=== PATIENT | male | born 1975 | race Caucasian/White ===

== ENCOUNTER 2018-04-26 01:01 | Observation (INO) | payer OTHER ==
[2018-04-26] MEDS ORDERED: NS 0.9% 1000 ML*IV.FLUID IV ONE (01:29)
[2018-04-26] MEDS ORDERED: Morphine VIAL* 4 MG/ML VIAL (1 ml vial) IV ONE (01:31)
[2018-04-26] MEDS ORDERED: Metoclopramide IV* 5 MG/ML 2 ML VIAL IV SLOW PU ONE (01:31)
[2018-04-26 02:00] LABS: Hematocrit 45 % (42-52); Hemoglobin 15.6 g/dl (14.0-18.0); Mean Corpuscular HGB Conc 34 g/dl (31-36); Mean Corpuscular Hemoglobin 31 pg (27-31); Mean Corpuscular Volume 91 fL (80-94); Platelet Count 166 10^3/ul (150-450); Red Cell Distribution Width 14 % (10.5-15)
[2018-04-26 02:10] LABS: EGFR Non-African American 9.1 (>60)
[2018-04-26] MEDS ORDERED: Vancomycin(*) 1,000 MG in NS 0.9% 250 ML* 250 ML IVPB ONE (02:19)
[2018-04-26] MEDS ORDERED: cefTRIAXone(*) 2 GM in NS 0.9% 100 ML* 100 ML IVPB ONE ×2 (02:20→02:28)
[2018-04-26 02:21] LABS: Monocytes % 5 % (0-7)
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
[2018-04-26] MEDS ORDERED: hydrALAZINE IV* 20 MG/ML VIAL IV PRN (05:36)
[2018-04-26] MEDS ORDERED: Acetaminophen TAB* 325 MG PO PRN (05:36)
[2018-04-26] MEDS ORDERED: CMCS Melatonin (NF) 3 MG TAB PO PRN (05:36)
[2018-04-26] MEDS ORDERED: Ondansetron ODT TAB* 4 MG PO PRN (05:36)
[2018-04-26] MEDS ORDERED: Albuterol 2.5 MG/3 ML NEB.SOL* (0.083%) INH PRN (05:36)
--- NOTE | 2018-04-26 05:56 | ED ---
Jared Elizabeth Rebecca, scribed for Alton Pemberton MD on 04/26/18 at 0547 . Progress - Progress Note Progress Note: Pt is being admitted by Dr. Travis. EKG done in the ED. EKG: Done at 0538 Rate: 79 bpm Rhythm: Sinus rhythm Ectopy: PVCs No ischemic changes Course/Dx - Course Course Of Treatment: Pt is being admitted by Dr. Travis. EKG: Done at 0538. Rate: 79 bpm. Rhythm: Sinus rhythm. Ectopy: PVCs. No ischemic changes - Diagnoses Provider Diagnoses: Acute renal insufficiency, Cervical disc herniation - Critical Care Time Critical Care Time: 30-74 min - 40 minutes Discharge - Sign-Out/Discharge Documenting (check all that apply): Discharge/Admit/Transfer - Admit - Discharge Plan Condition: Critical Disposition: ADMITTED TO [facility] Referrals: Zulay Gotti [Primary Care Provider] - The documentation as recorded by the Jared lawrence Rebecca accurately reflects the service I personally performed and the decisions made by Niecy saldaña Abdul, MD.
[2018-04-26] MEDS ORDERED: Baclofen TAB* 10 MG PO PRN (06:31)
[2018-04-26] MEDS ORDERED: LORazepam TAB(*) 0.5 MG PO PRN (06:32)
[2018-04-26 06:48] LABS: EGFR Non-African American 11.6 (>60)
[2018-04-26] MEDS: HYDROmorphone INJ* 2 MG/ML CARPUJECT SYRINGE IV PRN ×3 (06:52→21:28)
[2018-04-26 06:53] LABS: ABS Basophils 0.1 10^3/ul (0-0.2); ABS Eosinophils 0.1 10^3/ul (0-0.6); ABS Lymphocytes 3.6 10^3/ul (1.0-4.8); ABS Monocytes 0.8 10^3/ul (0-0.8); ABS Neutrophils 6.8 10^3/ul (1.5-7.7); ABS Nucleated RBC 0 10^3/ul; Eosinophil % 1.2 % (0-6); Hematocrit 41 % (42-52); Hemoglobin 14.2 g/dl (14.0-18.0); Lymphocyte % 31.7 % (25-47); Mean Corpuscular HGB Conc 35 g/dl (31-36); Mean Corpuscular Hemoglobin 32 pg (27-31); Mean Corpuscular Volume 91 fL (80-94); Mean Platelet Volume 9.2 um3 (7.4-10.4); Nucleated Red Blood Cells % 0; Platelet Count 114 10^3/ul (150-450); Red Blood Count 4.51 10^6/ul (4.0-5.4); Red Cell Distribution Width 14 % (10.5-15); White Blood Count 11.5 10^3/ul (3.5-10.8)
[2018-04-26] MEDS: Omeprazole CAP* 20 MG PO SCH (06:53)
[2018-04-26 07:59] LABS: Urine Appearance Cloudy; Urine Blood 3+ (Negative); Urine Color Yellow; Urine Ketones Negative (Negative); Urine Protein 1+(30 mg/dL) (Negative); Urine Specific Gravity 1.011 (1.010-1.030); Urine Urobilinogen Negative (Negative)
--- NOTE | 2018-04-26 08:02 | RAD ---
HISTORY: Shoulder and neck pain COMPARISONS: March 02, 2018 VIEWS: 1: frontal portable view of the chest at 1:54 AM FINDINGS: LINES AND TUBES: None. CARDIOMEDIASTINAL SILHOUETTE: The cardiomediastinal silhouette is normal for portable technique. PLEURA: The costophrenic angles are sharp. No pleural abnormalities are noted. LUNG PARENCHYMA: The lung volumes are low. The lungs are clear accounting for the phase of respiration. ABDOMEN: The upper abdomen is clear. There is no subphrenic gas. BONES AND SOFT TISSUES: No bone or soft tissue abnormalities are noted. IMPRESSION: LOW LUNG VOLUMES. NO ACTIVE CARDIOPULMONARY DISEASE.
--- NOTE | 2018-04-26 08:20 | RAD ---
HISTORY: Neck pain, bilateral arm pain, fever COMPARISONS: None TECHNIQUE: The following sequences were obtained of the cervical spine: Sagittal T1- and T2-weighted images, sagittal STIR images, axial T2 and gradient echo images. FINDINGS: BRAIN AND SPINAL CORD: The visualized spinal cord is normal in caliber, position, and signal intensity. The visualized portion of the brain is unremarkable. The cerebellar tonsils are normal in position. There are no epidural fluid collections. ALIGNMENT: There is straightening of the normal cervical lordosis. The alignment is otherwise normal. VERTEBRAL BODIES: There is mild anterolateral marginal osteophyte formation at C4-C5 and C6-C7. JOINTS: There is no subluxation or dislocation. MUSCULATURE: Unremarkable INTERVERTEBRAL DISCS: There is diffuse loss of intervertebral disc height and T2 signal throughout the spine. AXIAL IMAGES: C2-C3: There is no disc herniation, spinal stenosis, or neuroforaminal narrowing. C3-C4: There is no disc herniation, spinal stenosis, or neuroforaminal narrowing. C4-C5: There is a mild disc bulge. There is no significant neural foraminal narrowing. There is mild narrowing of the central canal. C5-C6: There is bilateral uncovertebral hypertrophy. There is moderate left and mild right neural foraminal narrowing. There is no significant central canal stenosis. C6-C7: There is a right lateral recess posterior osteophyte versus calcified disc protrusion measuring 0.3 cm in depth. There is bilateral uncovertebral hypertrophy. There is moderate bilateral neural foraminal narrowing. There is mild narrowing of the central canal. C7-T1: There is a right paracentral posterior osteophyte versus calcified disc protrusion measuring 0.3 cm in depth. There is bilateral facet hypertrophy. There is mild bilateral neural foraminal narrowing. There is no significant central canal stenosis. SOFT TISSUES: The visualized soft tissues of the neck are unremarkable. OTHER: None. IMPRESSION: 1. STRAIGHTENING OF THE CERVICAL LORDOSIS. 2. NO EPIDURAL FLUID COLLECTIONS. 3. DEGENERATIVE DISC DISEASE AND OSTEOARTHRITIS. 4. IS MILD NARROWING OF THE CENTRAL CANAL AT C4-C5 C7. 5. THERE ARE POSTERIOR OSTEOPHYTE VERSUS DISC PROTRUSIONS AT C6-C7 AND C7-T1 WITH A DISC BULGE AT C4-C5, DESCRIBED ABOVE. 6. THERE IS MULTILEVEL NEURAL FORAMINAL NARROWING DESCRIBED ABOVE
--- NOTE | 2018-04-26 08:23 | RAD ---
HISTORY: Neck pain, fever COMPARISONS: None TECHNIQUE: The following sequences were obtained of the thoracic spine: Sagittal T1 and T2-weighted images, sagittal STIR images, coronal T2-weighted images, and axial T2-weighted images. . FINDINGS: Localization is based on counting from C2 SPINAL CORD, CONUS, AND CAUDA EQUINA: The visualized spinal cord, conus, and cauda equina are normal in caliber, position, and signal intensity. There are no epidural fluid collections. ALIGNMENT: The alignment is normal. VERTEBRAL BODIES: The bones are normal in signal intensity. The vertebral bodies are preserved in height. JOINTS: There is mild osteoarthritis of the costovertebral articulations. MUSCULATURE: Normal INTERVERTEBRAL DISCS: There is mild diffuse loss of intervertebral disc height and T2 signal throughout the spine. AXIAL IMAGES: At T4-T5, there is a small central disc protrusion measuring 0.3 cm in depth. There is no significant neural foraminal narrowing or central canal stenosis. SOFT TISSUES: The visualized soft tissues of the chest and upper abdomen are unremarkable. OTHER: None. IMPRESSION: 1. MILD DEGENERATIVE CHANGES WITH A SMALL CENTRAL DISC PROTRUSION AT T4-T5. THERE IS NO SIGNIFICANT NEURAL FORAMINAL NARROWING OR CENTRAL CANAL STENOSIS. 2. THERE IS NO EPIDURAL FLUID COLLECTION.
[2018-04-26] MEDS: Mometasone/Formoter 200/5 MDI INH SCH ×2 (08:25→20:07)
[2018-04-26] MEDS: Tiotropium CAP.INH* CAP.INH/18 MCG (USE ORDER SET !) INH SCH (08:26)
[2018-04-26] MEDS ORDERED: Spiriva Inhaler DEVICE* 1 EACH DEVICE SCH (09:00)
[2018-04-26] MEDS: Insulin LISPRO* 1 UNITS UNIT SUBCUT SCH ×4 (09:23→21:25)
[2018-04-26] MEDS: Docusate CAP* 100 MG PO SCH ×2 (09:26→19:51)
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
[2018-04-26] MEDS: NS 0.9% 1000 ML* 1,000 ML IV SCH (17:28)
[2018-04-27] MEDS: NS 0.9% 1000 ML* 1,000 ML IV SCH ×2 (01:11→08:39)
[2018-04-27 06:47] LABS: EGFR Non-African American 74.3 (>60)
[2018-04-27] MEDS ORDERED: HYDROmorphone INJ* 2 MG/ML CARPUJECT SYRINGE IV PRN (06:51)
[2018-04-27] MEDS: Omeprazole CAP* 20 MG PO SCH (07:16)
[2018-04-27] MEDS: Insulin LISPRO* 1 UNITS UNIT SUBCUT SCH ×2 (08:11→12:40)
[2018-04-27] MEDS: Docusate CAP* 100 MG PO SCH (08:38)
[2018-04-27] MEDS: oxyCODONE TAB* 5 MG TAB PO PRN ×2 (08:38→12:40)
[2018-04-27] MEDS ORDERED: Amoxicillin PO (*) 875 MG TAB PO SCH (09:00)
[2018-04-27] MEDS ORDERED: Tamsulosin CAP* 0.4 MG PO SCH (09:00)
[2018-04-27] MEDS: Tiotropium CAP.INH* CAP.INH/18 MCG (USE ORDER SET !) INH SCH ×2 (09:09→09:12)
[2018-04-27] MEDS: Mometasone/Formoter 200/5 MDI INH SCH (09:10)
--- NOTE | 2018-04-27 09:12 | RAD ---
INDICATION: Renal failure COMPARISON: Abdominal sonogram August 07, 2015 TECHNIQUE: Longitudinal and transverse scans of the kidneys were obtained. FINDINGS: Kidneys: The kidneys are normal in size and echogenicity. No renal masses, calculi, or hydronephrosis is seen. The right kidney measures 11.3 x 5.1 x 5.1 cm and the left kidney 12.6 x 5.7 x 6.2 cm. Other: There is splenomegaly. The spleen measures 15.2 cm in diagonal dimension. Similar findings were documented on the remote ultrasound. IMPRESSION: NORMAL RENAL SONOGRAM. SPLENOMEGALY.
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
[2018-04-27 13:48] VITALS: BP 116/62
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
== END 2018-04-27 13:40 | disposition home or self-care (01) ==
LOC: ED 01:01 → MED 05:34 → INTOOBSV 05:34
PROVIDERS: ADMIT Hospitalist; ATTEND Student in an Organized Health Care Education/Training Program
DX: M50.323 Other cervical disc degeneration at C6-C7 level (principal); M51.34 Other intervertebral disc degeneration, thoracic region; E88.01 Alpha-1-antitrypsin deficiency; K74.60 Unspecified cirrhosis of liver; J44.9 Chronic obstructive pulmonary disease, unspecified; I10 Essential (primary) hypertension; F17.200 Nicotine dependence, unspecified, uncomplicated; R34 Anuria and oliguria; F41.9 Anxiety disorder, unspecified; Z79.899 Other long term (current) drug therapy
CPT/HCPCS: 36415; 71045; 72141; 72146; 76775; 80048; 80053; 81003; 81015; 82550; 82570; 83605; 83735; 84300; 85025; 85060; 85610; 85730; 86140; 87040; 87086; 93005; 94640; 96365; 96367; 96375; 99291; 99406; A9270-GY; G0378; J0696; J1170; J2270; J2765; J3370

== ENCOUNTER 2018-07-24 11:00 | Emergency (ER) | payer OTHER ==
[2018-07-24] MEDS ORDERED: Morphine INJ* 2 MG/ML 1 ML SYRINGE (TWO MG - NEW SYRINGE VERSION) IV ONE (11:26)
[2018-07-24] MEDS ORDERED: Morphine VIAL* 4 MG/ML VIAL (1 ml vial) IV ONE ×2 (11:27→12:38)
[2018-07-24] MEDS ORDERED: Ondansetron INJ* 2 MG/ML VIAL IV ONE (11:27)
[2018-07-24] MEDS ORDERED: Morphine INJ* 2 MG/ML 1 ML SYRINGE (TWO MG - NEW SYRINGE VERSION) ONE (11:31)
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
[2018-07-24] MEDS: NS 0.9% 1000 ML* 2,000 ML IV ONE (11:34)
[2018-07-24 11:57] LABS: ABS Basophils 0 10^3/ul (0-0.2); ABS Eosinophils 0.1 10^3/ul (0-0.6); ABS Lymphocytes 1.9 10^3/ul (1.0-4.8); ABS Neutrophils 7.4 10^3/ul (1.5-7.7); ABS Nucleated RBC 0 10^3/ul; Eosinophil % 0.6 % (0-6); Hematocrit 37 % (42-52); Hemoglobin 13.1 g/dl (14.0-18.0); Lymphocyte % 18.1 % (25-47); Mean Corpuscular HGB Conc 35 g/dl (31-36); Mean Corpuscular Hemoglobin 32 pg (27-31); Mean Corpuscular Volume 90 fL (80-94); Mean Platelet Volume 8.6 um3 (7.4-10.4); Nucleated Red Blood Cells % 0; Platelet Count 155 10^3/ul (150-450); Red Blood Count 4.11 10^6/ul (4.00-5.40); Red Cell Distribution Width 14 % (10.5-15); White Blood Count 10.3 10^3/ul (3.5-10.8)
[2018-07-24 12:07] LABS: INR 1.27 (0.77-1.02)
[2018-07-24 12:16] LABS: EGFR Non-African American 152.2 (>60)
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
[2018-07-24 13:24] VITALS: BP 127/86
== END 2018-07-24 17:15 | disposition short-term general hospital (02) ==
LOC: ED 11:00
DX: S36.029A Unspecified contusion of spleen, initial encounter (principal); V49.9XXA Car occupant (driver) (passenger) injured in unspecified traffic accident, initial encounter; Y93.9 Activity, unspecified; Y92.9 Unspecified place or not applicable; K66.1 Hemoperitoneum; R00.0 Tachycardia, unspecified; Z88.5 Allergy status to narcotic agent; F17.200 Nicotine dependence, unspecified, uncomplicated
CPT/HCPCS: 36415; 71045; 76705; 80053; 82550; 83605; 83690; 84484; 85025; 85610; 85730; 86140; 86850; 86900; 86901; 93005; 96374; 96375; 96376; 99284; J2270; J2405

== ENCOUNTER 2019-06-01 08:34 | Inpatient (IN) | payer OTHER ==
[2019-06-01] MEDS ORDERED: NS 0.9% 1000 ML** 1,000 ML IV ONE (08:42)
--- NOTE | 2019-06-01 08:52 | ED ---
Substance Abuse/Use - HPI Summary HPI Summary: 44 year old M brought in by ambulance to [facility] with a chief complaint of taking an unknown amount of Ambien per EMS since this morning. Pt was found with decreased LOC by . Family found empty bottle of ambien. Pt unable to give hx related to mental status. Pt has an abraison on scalp - unknown cause called to give waxer list. Pt with h/o alpha-1 antitrypsin dx - History Of Current Complaint Stated Complaint: OVERDOSE PER EMS Time Seen by Provider: 06/01/19 08:40 Hx Obtained From: EMS Ingestion History: Type/Name Of Drug - Ambien Aggravating Factor(s): Nothing Alleviating Factor(s): Nothing - Allergies/Home Medications Allergies/Adverse Reactions: Allergies Allergy/AdvReac Type Severity Reaction Status Date / Time acetaminophen Allergy Severe See Comment Verified 03/10/19 09:33 tramadol Allergy Itching Verified 03/10/19 09:33 Home Medications: Home Medications DULoxetine DR CAP* [Cymbalta CAP*] 60 mg PO DAILY 06/01/19 [History Confirmed ] Dulaglutide (NF) [Trulicity (NF)] 0.75 mg SUBCUT WEEKLY 06/01/19 [History Confirmed 06/01/19] Ertugliflozin Pidolate [Steglatro] 15 mg PO QAM 06/01/19 [History Confirmed 02/15] Gabapentin CAP(*) [Neurontin 300 CAP(*)] 300 mg PO TID 06/01/19 [History Confirmed 06/01/19] Hydromorphone HCl [Dilaudid] 4 mg PO BID PRN 06/01/19 [History Confirmed ] Nadolol (NF) 10 mg PO DAILY 06/01/19 [History Confirmed 06/01/19] RiFAXimin* [Xifaxan*] 550 mg PO BID 06/01/19 [History Confirmed 06/01/19] Zolpidem TAB* [Ambien TAB*] 10 mg PO BEDTIME PRN 06/01/19 [History Confirmed 02/15] amLODIPine TAB* [Norvasc 5 mg TAB*] 10 mg PO QAM 06/01/19 [History Confirmed 02/15] PMH/Surg Hx/FS Hx/Imm Hx Previously Healthy: No Endocrine/Hematology History: Reports: Hx Diabetes, Other Endocrine/ Hematological Disorders - Hepatic Encephalopathy - Alpha 1 antitripsin Cardiovascular History: Reports: Hx Coronary Artery Disease - cardiac cath showed "some plaque", Hx Hypertension, Hx Syncope, Other Cardiovascular Problems /Disorders - cardiac cath 2 years ago, swelling of feet Denies: Hx Pacemaker/ICD Respiratory History: Reports: Hx Chronic Bronchitis - "coughing", Hx Chronic Obstructive Pulmonary Disease (COPD) Denies: Hx Asthma GI History: Reports: Hx Cirrhosis, Other GI Disorders - Hx hernia History: Reports: Hx Acute Renal Failure - 03/2018, Other Problems/ Disorders - Hepatic Encephalopathy - Alpha 1 antitripsin Denies: Hx Renal Disease Musculoskeletal History: Reports: Hx Back Problems Sensory History: Reports: Hx Contacts or Glasses - for at night and while driving/ doesnt have him with him though, Hx Hearing Problem - ATKA Denies: Hx Hearing Aid Opthamlomology History: Reports: Hx Contacts or Glasses - for at night and while driving/ doesnt have him with him though Neurological History: Reports: Other Neuro Impairments/Disorders - fainting/ dizziness Psychiatric History: Reports: Hx Anxiety, Hx Depression Denies: Hx Panic Disorder - Surgical History Surgery Procedure, Year, and Place: Rotator cuff repair - Family History Known Family History: Positive: Cardiac Disease - father of AL in his 60s, liver disease, Diabetes - Social History Alcohol Use: None Hx Substance Use: No Substance Use Type: Reports: None Hx Tobacco Use: Yes Smoking Status (MU): Heavy Every Day Tobacco Smoker Review of Systems - ROS Summary Review of Systems Summary: level 5 caveat - pt with decreased MS Positive: Other - concern ingestion ambien All Other Systems Reviewed And Are Negative: No Physical Exam - Summary Physical Exam Summary: Vital Signs Reviewed: Yes Pt with decreased LOC, localizes pain, opens eye to loud voice Eyes: Conjunctiva Clear, LEON ENT: Hearing grossly normal Neck: Positive: Supple Respiratory: Positive: CTA throughout no w/r + BS throughout Cardiovascular: RRR nl s1, s2 no m/r CBT <2 sec abd soft + BS nt/nd no guarding, no distension Musculoskeletal Exam: spontaneous movement all extremities - localizes pain Neurological: Positive: decreaesd LOC - GCS: 3/4/5, localizes pain Psychological: Positive: Skin: Positive: non suturable abrasion right posterior scalp - no induration, no erythema Triage Information Reviewed: Yes Vital Signs Reviewed: Yes Diagnostics - Laboratory Result Diagrams: 06/01/19 08:48 06/01/19 08:48 Lab Statement: Any lab studies that have been ordered have been reviewed, and results considered in the medical decision making process. - CT Cervical spine CT Interpretation Completed By: Radiologist Summary of CT Findings: 1. STRAIGHTENING OF THE CERVICAL SPINE, NO EVIDENCE FOR FRACTURE OR SUBLUXATION. 2. MILD TO MODERATE CERVICAL SPONDYLOSIS. 3. SLIGHTLY LIMITED EXAM. ED physician has reviewed this report. Brain CT Interpretation Completed By: Radiologist Summary of CT Findings: No CT evidence for traumatic brain injury or acute intracranial process. Negative exam. ED physician has reviewed this report. - EKG No standard instances Cardiac Rate: NL - 96 EKG Rhythm: Sinus Rhythm ST Segment: Normal Ectopy: None EKG Comparison: No Significant Change - 07/24/18 Re-Evaluation - Re-Evaluation First Eval Re-Evaluation Time: 10:00 Comment: PCC states sx monitor minimum of 6 hours. recommend end tidal CO2, lactic acid. will add ammonia - h/o alpha antitrypsin. CT head/cspine neg acute. no tele events. vss. continue to monitor Course/Dx - Course Assessment/Plan: Patient presents to urgent care following presumed ingestion, the bottle of empty abdomen. Patient vocalizes pain is not over her injury. Patient's GCS currently is 12. We'll monitor closely. EKG reviewed. Patient with a nonsuturable abrasion of his head. Unclear cause. We'll check head CT C -spine CT. We'll check labs including ingestion labs as well as alcohol. We will place IV with IV fluid. Will place 2 L nasal cannula. RN spoke to poison control will follow recommendations. - Diagnoses Provider Diagnoses: Ingestion of unknown drug, Suicidal ideation, Mental status alteration - Physician Notifications Discussed Care Of Patient With: Nancy Perez Time Discussed With Above Provider: 11:18 Instructed by Provider To: Admit As Inpatient - Dr. Perez, hospitalist, agrees to admit patient. She asks that mental health multiple coil winder sees patient. Patient will be seen by mental health. - they were contacted by pr - requested start gathering collateral Discharge - Sign-Out/Discharge Documenting (check all that apply): Patient Departure - Discharge Plan Condition: Fair Disposition: ADMITTED TO [facility] Referrals: No Primary Care Phys,NOPCP [Primary Care Provider] - - Billing Disposition and Condition Condition: FAIR Disposition: Admitted to [facility] - Attestation Statements Document Initiated by Wen: Yes Documenting Scribe: Rashmi Gooden Provider For Whom Wen is Documenting (Include Credential): Any Sam MD Scribe Attestation: IRashmi, scribed for Any Sam MD on 06/01/19 at 1154. Scribe Documentation Reviewed: Yes Provider Attestation: The documentation as recorded by the scribe, Rashmi Gooden accurately reflects the service I personally performed and the decisions made by me, Any Sam MD Status of Scribe Document: Viewed
[2019-06-01 08:55] LABS: ABS Basophils 0.1 10^3/ul (0-0.2); ABS Lymphocytes 2.2 10^3/ul (1.0-4.8); ABS Monocytes 0.8 10^3/ul (0-0.8); ABS Neutrophils 7.3 10^3/ul (1.5-7.7); Eosinophil % 0.3 %; Hematocrit 45 % (42-52); Lymphocyte % 21.2 %; Mean Corpuscular HGB Conc 34 g/dL (31-36); Mean Corpuscular Hemoglobin 32 pg (27-31); Mean Corpuscular Volume 93 fL (80-94); Mean Platelet Volume 8.1 fL (7.4-10.4); Nucleated Red Blood Cells % 0.1; Platelet Count 133 10^3/uL (150-450); Red Blood Count 4.77 10^6 /uL (4.18-5.48); Red Cell Distribution Width 16 % (10-15); White Blood Count 10.5 10^3/uL (3.5-10.8)
[2019-06-01 09:13] LABS: ALT 74 U/L (7-52); AST 62 U/L (13-39); Albumin 3.8 g/dL (3.2-5.2); Albumin/Globulin Ratio 1.4 (1-3); Alkaline Phosphatase 173 U/L (34-104); Anion Gap 6 mmol/L (2-11); Blood Urea Nitrogen 5 mg/dL (6-24); CO2 Carbon Dioxide 28 mmol/L (22-32); Calcium 9.4 mg/dL (8.6-10.3); Chloride 109 mmol/L (101-111); EGFR African American 145.2 (>60); Globulin 2.8 g/dL (2-4); Glucose 117 mg/dL (70-100); Potassium 3.5 mmol/L (3.5-5.0); Sodium 143 mmol/L (135-145); Total Protein 6.6 g/dL (6.4-8.9)
[2019-06-01 09:29] LABS: Creatine Kinase 381 U/L (10-223)
[2019-06-01 09:44] LABS: Acetaminophen < 15 mcg/mL; Alcohol < 10 mg/dL (<10); Salicylate < 2.50 mg/dL (<30)
[2019-06-01 09:58] LABS: TSH (Thyroid Stimulating Horm) 0.67 mcIU/mL (0.34-5.60)
[2019-06-01 11:40] LABS: Urine Appearance Clear; Urine Bilirubin Negative (Negative); Urine Blood Negative (Negative); Urine Color Yellow; Urine Glucose 3+(>=500 mg/dL) (Negative); Urine Ketones Trace (Negative); Urine Nitrite Negative (Negative); Urine Protein Negative (Negative); Urine Specific Gravity 1.014 (1.010-1.030); Urine Urobilinogen Negative (Negative)
[2019-06-01 11:55] LABS: Urine Benzodiazepine Screen None Detected (None Detect); Urine Opiates Screen None Detected (None Detect)
[2019-06-01] MEDS ORDERED: Albuterol 2.5 MG/3 ML NEB.SOL* (0.083%) INH PRN (12:08)
[2019-06-01] MEDS ORDERED: Dextrose 50% Syringe 50 ML* 25 GM/50 ML SYRINGE IV PUSH PRN (12:18)
[2019-06-01] MEDS: Gabapentin CAP(*) 300 MG PO SCH ×2 (14:04→19:56)
[2019-06-01] MEDS: NS 0.9% 1000 ML** 1,000 ML IV SCH (14:05)
[2019-06-01] MEDS: Insulin LISPRO* 1 UNITS UNIT SUBCUT SCH (16:49)
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
[2019-06-01] MEDS: RiFAXimin* 550 MG TAB PO SCH (19:56)
[2019-06-02] MEDS: NS 0.9% 1000 ML** 1,000 ML IV SCH (03:00)
[2019-06-02 06:57] LABS: ABS Eosinophils 0.1 10^3/ul (0-0.6); ABS Lymphocytes 2.6 10^3/ul (1.0-4.8); ABS Monocytes 0.5 10^3/ul (0-0.8); ABS Neutrophils 3.6 10^3/ul (1.5-7.7); Eosinophil % 1.3 %; Hematocrit 41 % (42-52); Hemoglobin 14.2 g/dL (14.0-18.0); Lymphocyte % 37.6 %; Mean Corpuscular HGB Conc 35 g/dL (31-36); Mean Corpuscular Hemoglobin 32 pg (27-31); Mean Corpuscular Volume 94 fL (80-94); Mean Platelet Volume 8.8 fL (7.4-10.4); Nucleated Red Blood Cells % 0.1; Platelet Count 115 10^3/uL (150-450); Red Cell Distribution Width 16 % (10-15); White Blood Count 6.9 10^3/uL (3.5-10.8)
[2019-06-02 07:20] LABS: BUN/Creatinine Ratio 16.7 (8-20); Calcium 8.3 mg/dL (8.6-10.3); EGFR African American 266.1 (>60); EGFR Non-African American 219.9 (>60); Potassium 3.3 mmol/L (3.5-5.0)
[2019-06-02] MEDS: Insulin LISPRO* 1 UNITS UNIT SUBCUT SCH ×3 (08:05→16:21)
[2019-06-02] MEDS ORDERED: amLODIPine TAB* 5 MG PO SCH (09:00)
[2019-06-02] MEDS ORDERED: Atenolol TAB* 25 MG PO SCH (09:00)
[2019-06-02] MEDS ORDERED: DULoxetine DR CAP* 60 MG CAP.DR PO SCH (09:00)
[2019-06-02] MEDS ORDERED: Nadolol (NF) 20 MG TAB PO SCH (09:00)
[2019-06-02] MEDS: RiFAXimin* 550 MG TAB PO SCH ×2 (09:11→19:55)
[2019-06-02] MEDS: Gabapentin CAP(*) 300 MG PO SCH ×3 (09:11→19:55)
[2019-06-02 10:17] VITALS: BP 130/80
[2019-06-02] MEDS ORDERED: Potassium Chlor TAB* 20 MEQ TAB.ER PO ONE (10:30)
[2019-06-02] MEDS ORDERED: HYDROmorphone TAB* 4 MG PO PRN (11:32)
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
--- NOTE | 2019-06-02 17:47 | PN ---
Progress Note - Progress Note Date of Service: 06/02/19 Note: H&P dictated and please refer to H&P for detail. For now please transfer patient to BSU for his safety, further evaluations and stabilization of severe depression when medically cleared. Thanks for the consult.
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
[2019-06-02] MEDS ORDERED: Al Hydrox/Mg Hydrox/Simet LIQ* 30 ML UDC PO PRN (20:40)
[2019-06-02] MEDS ORDERED: Insulin LISPRO* 1 UNITS UNIT SUBCUT SCH (21:00)
[2019-06-03] MEDS ORDERED: Multivitamins/Minerals TAB PO SCH (09:00)
== END 2019-06-08 11:05 | DRG 812 ==
LOC: ED 08:34 → MEDTELE 12:08 → UNDODISIN 06-02 20:20
PROVIDERS: ADMIT Internal Medicine; ATTEND Internal Medicine
DX: T42.6X2A Poisoning by other antiepileptic and sedative-hypnotic drugs, intentional self-harm, initial encounter (principal); F33.2 Major depressive disorder, recurrent severe without psychotic features; E11.9 Type 2 diabetes mellitus without complications; E88.01 Alpha-1-antitrypsin deficiency; G89.29 Other chronic pain; F17.210 Nicotine dependence, cigarettes, uncomplicated; K74.60 Unspecified cirrhosis of liver; J44.9 Chronic obstructive pulmonary disease, unspecified; I10 Essential (primary) hypertension; F41.9 Anxiety disorder, unspecified; Z87.820 Personal history of traumatic brain injury; Z88.6 Allergy status to analgesic agent; Z82.5 Family history of asthma and other chronic lower respiratory diseases; Y92.009 Unspecified place in unspecified non-institutional (private) residence as the place of occurrence of the external cause; Z84.1 Family history of disorders of kidney and ureter; Z82.49 Family history of ischemic heart disease and other diseases of the circulatory system; Z83.3 Family history of diabetes mellitus; Z83.79 Family history of other diseases of the digestive system
CPT/HCPCS: 36415; 70450; 72125; 76705; 80048; 80053; 80061; 80307; 80320; 80329; 81003; 82140; 82550; 83036; 83605; 84443; 85025; 90853; 93005; 99222; 99232; 99233; 99238; 99283; A9270-GY; G0480

== ENCOUNTER 2019-06-02 20:20 | Inpatient (IN) | payer OTHER ==
[2019-06-02] MEDS ORDERED: Al Hydrox/Mg Hydrox/Simet LIQ* 30 ML UDC PO PRN (21:15)
[2019-06-02] MEDS ORDERED: Albuterol 2.5 MG/3 ML NEB.SOL* (0.083%) INH PRN (21:16)
[2019-06-02] MEDS ORDERED: Dextrose 50% Syringe 50 ML* 25 GM/50 ML SYRINGE IV PUSH PRN (21:22)
[2019-06-02] MEDS: Gabapentin CAP(*) 300 MG PO SCH (21:26)
[2019-06-02] MEDS: RiFAXimin* 550 MG TAB PO SCH (21:28)
[2019-06-02] MEDS: HYDROmorphone TAB* 4 MG PO PRN (21:40)
[2019-06-02] MEDS: Insulin LISPRO* 1 UNITS UNIT SUBCUT SCH (21:46)
[2019-06-03] MEDS: Insulin LISPRO* 1 UNITS UNIT SUBCUT SCH ×4 (07:49→20:35)
[2019-06-03] MEDS: RiFAXimin* 550 MG TAB PO SCH ×2 (08:01→20:33)
[2019-06-03] MEDS: Gabapentin CAP(*) 300 MG PO SCH ×3 (08:01→20:33)
[2019-06-03] MEDS: amLODIPine TAB* 5 MG PO SCH (08:01)
[2019-06-03] MEDS: Multivitamins/Minerals TAB PO SCH (08:01)
[2019-06-03] MEDS: HYDROmorphone TAB* 4 MG PO PRN ×2 (08:03→20:33)
[2019-06-03] MEDS ORDERED: DULoxetine DR CAP* 60 MG CAP.DR PO SCH (09:00)
[2019-06-03] MEDS ORDERED: Acetaminophen TAB* 325 MG PO PRN (10:38)
[2019-06-03] MEDS ORDERED: Vitamin THERAPEUTIC TAB PO SCH (11:00)
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
[2019-06-03] MEDS: Nicotine PATCH 14 MG/24 HR* PATCH TRANSDERM SCH (15:55)
--- NOTE | 2019-06-03 16:54 | CONSULT ---
Subjective Date of Service: 06/03/19 Interval History: Shane is a 44 yo male, seen today request of psychiatry due to elevated LFTs noted on admission to inpatient medical on 06/01/19. His ammonia level is 56 (37 on 06/01). He states he used to be on lactulose but disliked it and refused to take it. He now takes rifaximin, which has been effective for him. He recalls the events of the past few days and states that he is "here to get better." States he sees Dr. Osman ([facility]) for his liver and alpha-1 antitrypsin deficiency. He states he lost a bunch of weight recently from not eating and is due for some tests, does not recall which ones. Denies fever/chills, CP, SOB. Reports some tenderness to upper chest with palpation due to sternal rubbing and medical interventions. No other complaints. Family History: Unchanged from Admission Social History: Unchanged from Admission Past Medical History: Unchanged from Admission Review of Systems - Measurements Intake and Output: Intake and Output Last 24 Hours 06/01/19 06/02/19 06/03/19 06/04/19 06:59 06:59 06:59 06:59 Weight 151 lb - Review of Systems Constitutional Symptoms: Positive: Weight Loss Negative: Weakness, Fever, Night Sweats Dermatology: Positive: Other - folliculitis to chest HEENT: Positive: Normal Eyes: Positive: Normal Thyroid: Positive: Normal Pulmonary: Positive: COPD Negative: Wheezing, Respiratory Distress, Shortness of Breath Cardiology: Positive: Other - chest wall pain Negative: Shortness of Breath, Palpitations, Edema Gastroenterology: Negative: Abdominal Pain, Nausea, Vomiting, Constipation, Diarrhea Genital - Urinary: Positive: Normal Negative: Dysuria, Hematuria Musculoskeletal: Positive: Low Back Pain - chronic Endocrinology: Positive: Diabetes Mellitus Neurology: Positive: Other - hx TBI Negative: Headache, Dizziness Psychiatry: Positive: Depression, Anxiety, Suicidal Ideation Objective Active Medications: Al Hydrox/Mg Hydrox/Simethicone (Maalox Plus*) 30 ml PO Q4H PRN PRN Reason: INDIGESTION Albuterol (Ventolin 2.5 Mg/3 Ml Neb.Nevin*) 2.5 mg INH [id number] AWAKE PRN PRN Reason: SOB/WHEEZING Amlodipine Besylate (Norvasc Tab*) 10 mg PO DAILY [facility] Last Admin: 06/03/19 08:01 Dose: 10 mg Dextrose (D50w Syringe 50 Ml*) 50 gm IV PUSH .FOR FS < 60 - SS PRN PRN Reason: FS < 60 Duloxetine HCl (Cymbalta Cap*) 40 mg PO DAILY [facility] Escitalopram Oxalate (Lexapro *) 10 mg PO DAILY [facility] Gabapentin (Neurontin Cap(*)) 300 mg PO TID [facility] Last Admin: 06/03/19 15:55 Dose: 300 mg Hydromorphone HCl (Dilaudid Tab*) 4 mg PO BID PRN PRN Reason: PAIN Last Admin: 06/03/19 08:03 Dose: 4 mg Insulin Human Lispro (Humalog*) 0 units SUBCUT ACHS [facility]; Protocol Last Admin: 06/03/19 12:19 Dose: Not Given Multivitamins/Minerals (Theragran/Minerals Tab*) 1 tab PO DAILY [facility] Last Admin: 06/03/19 08:01 Dose: 1 tab Nicotine (Nicotine Patch 14 Mg/24 Hr*) 1 patch TRANSDERM DAILY [facility] Last Admin: 06/03/19 15:55 Dose: 1 patch Pharmacy Profile Note (Nicotine Patch Removal Note*) 1 note FOLLOW UP 2100 [facility] Propranolol HCl (Inderal Tab*) 10 mg PO BID [facility] Rifaximin (Xifaxan*) 550 mg PO BID [facility] Last Admin: 06/03/19 08:01 Dose: 550 mg Vital Signs - 8 hr 06/03/19 06/03/19 06/03/19 11:07 11:08 14:24 Respiratory 16 16 16 Rate 06/03/19 15:55 Respiratory 18 Rate Oxygen Devices in Use Now: None Appearance: Middle aged male, lying in bed, pleasant, conversive, NAD Eyes: No Scleral Icterus, PERRLA Ears/Nose/Mouth/Throat: Clear Oropharnyx, Mucous Membranes Moist Neck: NL Appearance and Movements; NL JVP Respiratory: Symmetrical Chest Expansion and Respiratory Effort, Clear to Auscultation Cardiovascular: NL Sounds; No Murmurs; No JVD, RRR, No Edema, - - upper chest wall tenderness with palpation Abdominal: NL Sounds; No Tenderness; No Distention Extremities: No Clubbing, Cyanosis Skin: - - mild folliculitis to chest Neurological: Alert and Oriented x 3, NL Muscle Strength and Tone Lines/Tubes/Other Access: Clean, Dry and Intact Peripheral IV Nutrition: Taking PO's Assessment/Plan - [place] Shane is a 44 yo male who presented to the ED on 06/01 with concern for Ambien overdose and suicide attempt, now admitted to BSU. Hospital medicine consulting due to history of Alpha-1 antitrypsin deficiency and liver cirrhosis. Plan By Medical Problem: 1. Liver cirrhosis and alpha-1 antitrypsin deficiency - patient with mildly elevated ammonia, asymptomatic. He appears to be at neurological baseline. He should continue his rifaximin; if concern for AMS or increasing levels, may consider lactulose (though patient states he won't take this medication). LFTs are chronically elevated in the presence of known cirrhosis, only slightly above baseline on admission (<2ULM), likely 2/2 to acute overdose. Will check liver ultrasound as part of further evaluation. Recheck LFTs in AM. 2. Chronic pain - continue home hydropmorphone and duloxetine. 3. Hypertension - normotensive, continue amlodipine, propranolol. 4. COPD - Stable, not in acute exacerbation. Continue prn albuterol. 5. Type 2 diabetes - resume Steglatro (or formulary equivalent). Recommend consistent carb diet. Admission Status and Rationale: Inpatient, dispo per BSU team Attending: Michelle Canas
[2019-06-03] MEDS: Propranolol TAB* 10 MG PO SCH (20:34)
[2019-06-03] MEDS: Nicotine Patch Removal NOTE FOLLOW UP SCH (20:45)
[2019-06-04 07:07] LABS: ABS Eosinophils 0.1 10^3/ul (0-0.6); ABS Lymphocytes 2.7 10^3/ul (1.0-4.8); ABS Monocytes 0.5 10^3/ul (0-0.8); ABS Neutrophils 3.2 10^3/ul (1.5-7.7); Eosinophil % 1.1 %; Hematocrit 43 % (42-52); Hemoglobin 14.5 g/dL (14.0-18.0); Lymphocyte % 41.5 %; Mean Corpuscular HGB Conc 34 g/dL (31-36); Mean Corpuscular Hemoglobin 32 pg (27-31); Mean Corpuscular Volume 94 fL (80-94); Mean Platelet Volume 8.5 fL (7.4-10.4); Nucleated Red Blood Cells % 0.2; Platelet Count 133 10^3/uL (150-450); Red Blood Count 4.55 10^6 /uL (4.18-5.48); Red Cell Distribution Width 16 % (10-15); White Blood Count 6.6 10^3/uL (3.5-10.8)
[2019-06-04 07:09] LABS: Albumin 3.3 g/dL (3.2-5.2); Albumin/Globulin Ratio 1.3 (1-3); BUN/Creatinine Ratio 18.4 (8-20); Calcium 8.9 mg/dL (8.6-10.3); EGFR African American 222.7 (>60); EGFR Non-African American 184.1 (>60); Globulin 2.6 g/dL (2-4); HDL Cholesterol 46.9 mg/dL; Potassium 4.2 mmol/L (3.5-5.0); Total Bilirubin 0.4 mg/dL (0.2-1.0); Total Protein 5.9 g/dL (6.4-8.9)
[2019-06-04] MEDS: Insulin LISPRO* 1 UNITS UNIT SUBCUT SCH ×4 (08:20→21:04)
[2019-06-04] MEDS ORDERED: ERTUGLIFLOZIN PIDOLATE 15 MG PO SCH (09:00)
[2019-06-04] MEDS: Nicotine PATCH 14 MG/24 HR* PATCH TRANSDERM SCH (10:31)
[2019-06-04] MEDS: Gabapentin CAP(*) 300 MG PO SCH ×3 (10:32→20:12)
[2019-06-04] MEDS: DULoxetine DR CAP* 20 MG CAP.DR PO SCH (10:32)
[2019-06-04] MEDS: Escitalopram * 10 MG TAB PO SCH (10:32)
[2019-06-04] MEDS: Propranolol TAB* 10 MG PO SCH ×2 (10:32→20:13)
[2019-06-04] MEDS: RiFAXimin* 550 MG TAB PO SCH ×2 (10:33→20:13)
[2019-06-04] MEDS: amLODIPine TAB* 5 MG PO SCH (10:33)
[2019-06-04] MEDS: Multivitamins/Minerals TAB PO SCH (10:33)
[2019-06-04] MEDS: HYDROmorphone TAB* 4 MG PO PRN ×2 (10:37→20:12)
--- NOTE | 2019-06-04 11:35 | PN ---
Hospitalist Progress Note Date of Service: 06/04/19 I reviewed Shane's labs and imaging. His liver US is consistent with known cirrhosis and he had no symptoms to correlate with the pericholecystic fluid. No further testing indicated at this time. We will sign off, please call us if you have any other questions.
[2019-06-04] MEDS ORDERED: NF:Dulaglutide (NF) 0.75 MG/0.5 ML SYRINGE SUBCUT SCH (12:00)
--- NOTE | 2019-06-04 18:43 | PN ---
Subjective - Subjective Date of Service: 06/04/19 Service Type: 91193 Hosp care 25 min moderate complexity Subjective: Shane appears to be in good spirit today. He had a visit from his and that went well. He is looking forwards to a discharge soon. Denies SI or HI or hallucinations. Objective - General Observations Appearance: Well Groomed Appears Stated Age: Yes Stature: WNL Posture: WNL Eye Contact: Average Behavior/Activity: WNL - Interaction Observations Attitude Towards Examiner: Cooperative Stated Mood: Euthymic Affect: Full Thought Process: Coherent, Goal Directed Perception: WNL Thought Content: WNL Hallucination Type: Denies Delusion Type: Denies - Cognitive Function Orientation: A&O x 4 Level of Consciousness: Awake, Alert, Appropriate Cognition: WNL Estimated Intelligence: Normal Insight: WNL Judgment Within Normal Limits: Yes - Medication Compliance Cooperative with Inpatient Medication Regimen: Yes - Group Participation Participates in Group Activities: Partial Assessment - Assessment Merits Inpatient Hospitalization: Consolidate Improvements, Pending Safe DC Plan Plan - Plan Treatment Plan: Name: SHANE JACKSON Birthdate: 1975 [id number] Continued Medication Management: Continue Outpt Medication Medications: Current Medications Al Hydrox/Mg Hydrox/Simethicone (Maalox Plus*) 30 ml PO Q4H PRN PRN Reason: INDIGESTION Albuterol (Ventolin 2.5 Mg/3 Ml Neb.Nevin*) 2.5 mg INH [id number] AWAKE PRN PRN Reason: SOB/WHEEZING Amlodipine Besylate (Norvasc Tab*) 10 mg PO DAILY [facility] Last Admin: 06/04/19 10:33 Dose: 10 mg Dextrose (D50w Syringe 50 Ml*) 50 gm IV PUSH .FOR FS < 60 - SS PRN PRN Reason: FS < 60 Dulaglutide (Trulicity (Nf)) 0.75 mg SUBCUT WEEKLY [facility] Duloxetine HCl (Cymbalta Cap*) 40 mg PO DAILY [facility] Last Admin: 06/04/19 10:32 Dose: 40 mg Escitalopram Oxalate (Lexapro *) 10 mg PO DAILY [facility] Last Admin: 06/04/19 10:32 Dose: 10 mg Gabapentin (Neurontin Cap(*)) 300 mg PO TID [facility] Last Admin: 06/04/19 16:01 Dose: 300 mg Hydromorphone HCl (Dilaudid Tab*) 4 mg PO BID PRN PRN Reason: PAIN Last Admin: 06/04/19 10:37 Dose: 4 mg Insulin Human Lispro (Humalog*) 0 units SUBCUT ACHS [facility]; Protocol Last Admin: 06/04/19 16:39 Dose: Not Given Multivitamins/Minerals (Theragran/Minerals Tab*) 1 tab PO DAILY [facility] Last Admin: 06/04/19 10:33 Dose: 1 tab Nicotine (Nicotine Patch 14 Mg/24 Hr*) 1 patch TRANSDERM DAILY [facility] Last Admin: 06/04/19 10:31 Dose: 1 patch Pharmacy Profile Note (Nicotine Patch Removal Note*) 1 note FOLLOW UP 2100 [facility] Last Admin: 06/03/19 20:45 Dose: 1 note Propranolol HCl (Inderal Tab*) 10 mg PO BID [facility] Last Admin: 06/04/19 10:32 Dose: 10 mg Rifaximin (Xifaxan*) 550 mg PO BID [facility] Last Admin: 06/04/19 10:33 Dose: 550 mg - Discharge Plan Discharge Plan: Outpatient Follow Up Outpatient Program: [facility]
[2019-06-04] MEDS: Nicotine Patch Removal NOTE FOLLOW UP SCH (20:10)
[2019-06-05] MEDS: Insulin LISPRO* 1 UNITS UNIT SUBCUT SCH ×4 (07:31→20:24)
[2019-06-05] MEDS: Multivitamins/Minerals TAB PO SCH (08:10)
[2019-06-05] MEDS: DULoxetine DR CAP* 20 MG CAP.DR PO SCH (08:10)
[2019-06-05] MEDS: Escitalopram * 10 MG TAB PO SCH (08:11)
[2019-06-05] MEDS: RiFAXimin* 550 MG TAB PO SCH ×2 (08:11→20:11)
[2019-06-05] MEDS: Nicotine PATCH 14 MG/24 HR* PATCH TRANSDERM SCH (08:11)
[2019-06-05] MEDS: amLODIPine TAB* 5 MG PO SCH (08:11)
[2019-06-05] MEDS: Propranolol TAB* 10 MG PO SCH ×2 (08:11→20:10)
[2019-06-05] MEDS: Gabapentin CAP(*) 300 MG PO SCH ×3 (08:11→20:10)
[2019-06-05] MEDS: HYDROmorphone TAB* 4 MG PO PRN ×2 (15:24→20:15)
[2019-06-05] MEDS: Nicotine Patch Removal NOTE FOLLOW UP SCH (20:14)
[2019-06-06] MEDS: Multivitamins/Minerals TAB PO SCH (07:40)
[2019-06-06] MEDS: DULoxetine DR CAP* 20 MG CAP.DR PO SCH (07:41)
[2019-06-06] MEDS: RiFAXimin* 550 MG TAB PO SCH ×2 (07:41→20:27)
[2019-06-06] MEDS: Gabapentin CAP(*) 300 MG PO SCH ×3 (07:41→20:25)
[2019-06-06] MEDS: Escitalopram * 10 MG TAB PO SCH (07:41)
[2019-06-06] MEDS: Propranolol TAB* 10 MG PO SCH ×2 (07:41→20:26)
[2019-06-06] MEDS: amLODIPine TAB* 5 MG PO SCH (07:41)
[2019-06-06] MEDS: HYDROmorphone TAB* 4 MG PO PRN ×2 (07:42→20:28)
[2019-06-06] MEDS: Nicotine PATCH 14 MG/24 HR* PATCH TRANSDERM SCH (07:44)
[2019-06-06] MEDS: Insulin LISPRO* 1 UNITS UNIT SUBCUT SCH ×4 (08:08→20:22)
--- NOTE | 2019-06-06 10:46 | PN ---
Subjective - Subjective Date of Service: 06/06/19 Service Type: 71847 Hosp care 35 min high complexity Subjective: Nursing Report: Patient was visible on unit, no chemical restraints. No behavioral incidents Not attending group activities. CC: "okay Patient was seen and evaluated in the common room. He reported having adequate appetite and sleep. Per nursing no behavioral issues or overnight events reported. Patient reported that he is tolerating medications without side effects. He noted being upset because his did not come until the last 10 minutes of visiting hours. He denied using amphetamines despite his drug screen results. Objective - General Observations Appearance: Neat Appears Stated Age: Yes Stature: WNL Posture: Slumped Eye Contact: Average Behavior/Activity: WNL - Interaction Observations Attitude Towards Examiner: Cooperative Stated Mood: Anxious Affect: Blunted Speech Pattern/Tone: Clear Thought Process: Coherent Perception: WNL Thought Content: WNL Hallucination Type: None Delusion Type: None - Cognitive Function Orientation: A&O x 4 Level of Consciousness: Awake - Medication Compliance Cooperative with Inpatient Medication Regimen: Yes - Group Participation Participates in Group Activities: No Assessment - Assessment Merits Inpatient Hospitalization: For Immediate Safety Clinical Impression: 44 year old with recent suicide attempt and medical issues that include alpha one antitrypsin deficiency, COPD, and liver Cirrhosis came to the hospital and was admitted to the [facility] at [facility]. Plan - Plan Treatment Plan: Name: BETTE JACKSON Birthdate: 1975 [id number] Plan #Q15 minute observation with staff pass # The patient requires psychiatric inpatient admission at this time to assure safety, receive treatment and work toward stabilization. # Obtain collateral information once release is signed. Family Meeting with before discharge # Collaboration with [employer] Dima De La Rosa # Start tapering down cymbalta from 40mg to 20mg daily due to hepatic involvement, currently no signs of discontinuation effect. # Continue lexapro 10mg daily for depression and propranolol 10mg BID for anxiety # Liver ultrasound completed #Medical treatment per recommendations from medicine team Tobacco use disorder: Nicotine supplement offered and put in place. #Goals before discharge include: To eliminate/ reduce suicidal ideation #Tentative discharge Thursday/ Thursday Laboratory Results - last 24 hr 06/04/19 06/05/19 06/05/19 06:40 12:05 16:29 POC Glucose (mg/dL) 117 H 69 L Hemoglobin A1c 6.7 H 06/05/19 06/05/19 06/05/19 16:53 17:27 20:20 POC Glucose (mg/dL) 62 L 132 H 216 H Hemoglobin A1c Vital Signs Temp Pulse Resp BP Pulse Ox 98.0 F 52 16 119/62 100 06/06/19 07:53 06/06/19 07:53 06/06/19 07:53 06/06/19 07:53 06/06/19 07:53 Continued Medication Management: Continue Outpt Medication Medications: Current Medications Al Hydrox/Mg Hydrox/Simethicone (Maalox Plus*) 30 ml PO Q4H PRN PRN Reason: INDIGESTION Albuterol (Ventolin 2.5 Mg/3 Ml Neb.Nevin*) 2.5 mg INH [id number] AWAKE PRN PRN Reason: SOB/WHEEZING Amlodipine Besylate (Norvasc Tab*) 10 mg PO DAILY [facility] Last Admin: 06/06/19 07:41 Dose: 10 mg Dextrose (D50w Syringe 50 Ml*) 50 gm IV PUSH .FOR FS < 60 - SS PRN PRN Reason: FS < 60 Dulaglutide (Trulicity (Nf)) 0.75 mg SUBCUT WEEKLY [facility] Duloxetine HCl (Cymbalta Cap*) 20 mg PO DAILY [facility] Escitalopram Oxalate (Lexapro *) 10 mg PO DAILY [facility] Last Admin: 06/06/19 07:41 Dose: 10 mg Gabapentin (Neurontin Cap(*)) 300 mg PO TID [facility] Last Admin: 06/06/19 07:41 Dose: 300 mg Hydromorphone HCl (Dilaudid Tab*) 4 mg PO BID PRN PRN Reason: PAIN Last Admin: 06/06/19 07:42 Dose: 4 mg Insulin Human Lispro (Humalog*) 0 units SUBCUT ACHS [facility]; Protocol Last Admin: 06/06/19 08:08 Dose: Not Given Multivitamins/Minerals (Theragran/Minerals Tab*) 1 tab PO DAILY [facility] Last Admin: 06/06/19 07:40 Dose: 1 tab Nicotine (Nicotine Patch 14 Mg/24 Hr*) 1 patch TRANSDERM DAILY [facility] Last Admin: 06/06/19 07:44 Dose: 1 patch Pharmacy Profile Note (Nicotine Patch Removal Note*) 1 note FOLLOW UP 2100 [facility] Last Admin: 06/05/19 20:14 Dose: 1 note Propranolol HCl (Inderal Tab*) 10 mg PO BID [facility] Last Admin: 06/06/19 07:41 Dose: 10 mg Rifaximin (Xifaxan*) 550 mg PO BID [facility] Last Admin: 06/06/19 07:41 Dose: 550 mg - Discharge Plan Discharge Plan: Inpatient Hospitalization
--- NOTE | 2019-06-06 11:29 | PN ---
BSU: Group Therapy Note - Service Type Service Type: [id number] Group Psychotherapy - Cognitive Behavioral Group Therapy ( CBT):Patient was attentive and participatory in CBT programming this morning, and remained in good behavioral control. Patient expressed positive insights regarding relevant treatment interventions and goals.
[2019-06-06] MEDS: Nicotine Patch Removal NOTE FOLLOW UP SCH (20:29)
[2019-06-06] MEDS ORDERED: PTO:Dulaglutide (NF) 0.75 MG/0.5 ML SYRINGE SUBCUT SCH (21:00)
[2019-06-07] MEDS: Insulin LISPRO* 1 UNITS UNIT SUBCUT SCH ×4 (08:02→20:45)
[2019-06-07] MEDS: Gabapentin CAP(*) 300 MG PO SCH ×3 (08:22→20:07)
[2019-06-07] MEDS: Nicotine PATCH 14 MG/24 HR* PATCH TRANSDERM SCH (08:22)
[2019-06-07] MEDS: HYDROmorphone TAB* 4 MG PO PRN ×2 (08:23→20:08)
[2019-06-07] MEDS: Propranolol TAB* 10 MG PO SCH ×2 (08:23→20:08)
[2019-06-07] MEDS: RiFAXimin* 550 MG TAB PO SCH ×2 (08:24→20:08)
[2019-06-07] MEDS: Multivitamins/Minerals TAB PO SCH (08:24)
[2019-06-07] MEDS: Escitalopram * 10 MG TAB PO SCH (08:24)
[2019-06-07] MEDS: amLODIPine TAB* 5 MG PO SCH (08:24)
[2019-06-07] MEDS ORDERED: DULoxetine DR CAP* 20 MG CAP.DR PO SCH (09:00)
--- NOTE | 2019-06-07 10:35 | PN ---
Subjective - Subjective Date of Service: 06/07/19 Service Type: 71861 Hosp care 35 min high complexity Subjective: Nursing Report: Patient was visible on unit, no chemical restraints. No behavioral incidents CC: "Fine Patient was seen and evaluated in the common room. He reported having adequate appetite and sleep. Per nursing no behavioral issues or overnight events reported. Patient reported that he is tolerating medications without side effects. His came to visit overnight. He expressed readiness for discharge and stated that is plans to pick him up at 11am tomorrow. Objective - General Observations Appearance: Neat Appears Stated Age: Yes Stature: WNL Posture: Slumped Eye Contact: Average Behavior/Activity: WNL - Interaction Observations Attitude Towards Examiner: Cooperative Stated Mood: Euthymic Affect: Blunted Speech Pattern/Tone: Clear Thought Process: Coherent Perception: WNL Thought Content: WNL Hallucination Type: None Delusion Type: None - Cognitive Function Orientation: A&O x 4 Level of Consciousness: Awake - Medication Compliance Cooperative with Inpatient Medication Regimen: Yes - Group Participation Participates in Group Activities: Yes Assessment - Assessment Merits Inpatient Hospitalization: For Immediate Safety Clinical Impression: 44 year old with recent suicide attempt and medical issues that include alpha one antitrypsin deficiency, COPD, and liver Cirrhosis came to the hospital and was admitted to the B[facility] at [facility]. Plan - Plan Treatment Plan: Name: BETTE JACKSON Birthdate: 1975 [id number] Plan #Q30 minute observation with staff pass # The patient requires psychiatric inpatient admission at this time to assure safety, receive treatment and work toward stabilization. # Obtain collateral information obtained from before discharge # Collaboration with [employer] Investigator Dima De La Rosa # D/C cymbalta due to hepatic involvement, currently no signs of discontinuation effect. # Increase lexapro 20mg daily for depression # Continue propranolol 10mg BID for anxiety #Liver u/s findings completed and in report #Medical treatment per recommendations from medicine team Tobacco use disorder: Nicotine supplement offered and put in place. #Goals before discharge include: To eliminate/ reduce suicidal ideation #Tentative discharge Thursday Sodium 142 mmol/L (135-145) 06/04/19 06:40 Potassium 4.2 mmol/L (3.5-5.0) 06/04/19 06:40 BUN 9 mg/dL (6-24) 06/04/19 06:40 Creatinine 0.49 mg/dL (0.67-1.17) L 06/04/19 06:40 Hemoglobin A1c 6.7 % (4.0-5.6) H 06/04/19 06:40 Calcium 8.9 mg/dL (8.6-10.3) 06/04/19 06:40 AST 42 U/L (13-39) H 06/04/19 06:40 ALT 48 U/L (7-52) 06/04/19 06:40 Triglycerides 61 mg/dL 06/04/19 06:40 Cholesterol 173 mg/dL 06/04/19 06:40 LDL Cholesterol 114 mg/dL 06/04/19 06:40 Vital Signs Temp Pulse Resp BP Pulse Ox 98.3 F 61 16 109/65 96 06/07/19 07:55 06/07/19 08:19 06/07/19 14:07 06/07/19 07:55 06/07/19 07:55 Continued Medication Management: Continue Outpt Medication Medications: Current Medications Al Hydrox/Mg Hydrox/Simethicone (Maalox Plus*) 30 ml PO Q4H PRN PRN Reason: INDIGESTION Albuterol (Ventolin 2.5 Mg/3 Ml Neb.Nevin*) 2.5 mg INH [id number] AWAKE PRN PRN Reason: SOB/WHEEZING Amlodipine Besylate (Norvasc Tab*) 10 mg PO DAILY [facility] Last Admin: 06/07/19 08:24 Dose: 10 mg Dextrose (D50w Syringe 50 Ml*) 50 gm IV PUSH .FOR FS < 60 - SS PRN PRN Reason: FS < 60 Dulaglutide (Trulicity (Nf)) 0.75 mg SUBCUT Mo [facility] Last Admin: 06/06/19 20:23 Dose: 0.75 mg Escitalopram Oxalate (Lexapro *) 20 mg PO DAILY [facility] Gabapentin (Neurontin Cap(*)) 300 mg PO TID [facility] Last Admin: 06/07/19 08:22 Dose: 300 mg Hydromorphone HCl (Dilaudid Tab*) 4 mg PO BID PRN PRN Reason: PAIN Last Admin: 06/07/19 08:23 Dose: 4 mg Insulin Human Lispro (Humalog*) 0 units SUBCUT [facility]; Protocol Last Admin: 06/07/19 08:02 Dose: Not Given Multivitamins/Minerals (Theragran/Minerals Tab*) 1 tab PO DAILY [facility] Last Admin: 06/07/19 08:24 Dose: 1 tab Nicotine (Nicotine Patch 14 Mg/24 Hr*) 1 patch TRANSDERM DAILY [facility] Last Admin: 06/07/19 08:22 Dose: 1 patch Pharmacy Profile Note (Nicotine Patch Removal Note*) 1 note FOLLOW UP 2100 [facility] Last Admin: 06/06/19 20:29 Dose: 1 note Propranolol HCl (Inderal Tab*) 10 mg PO BID [facility] Last Admin: 06/07/19 08:23 Dose: 10 mg Rifaximin (Xifaxan*) 550 mg PO BID [facility] Last Admin: 06/07/19 08:24 Dose: 550 mg - Discharge Plan Discharge Plan: Inpatient Hospitalization
[2019-06-07] MEDS: Nicotine Patch Removal NOTE FOLLOW UP SCH (20:46)
[2019-06-08] MEDS: Insulin LISPRO* 1 UNITS UNIT SUBCUT SCH (08:02)
[2019-06-08 08:20] VITALS: BP 112/67
[2019-06-08] MEDS: amLODIPine TAB* 5 MG PO SCH (08:24)
[2019-06-08] MEDS: Gabapentin CAP(*) 300 MG PO SCH (08:24)
[2019-06-08] MEDS: Multivitamins/Minerals TAB PO SCH (08:24)
[2019-06-08] MEDS: Nicotine PATCH 14 MG/24 HR* PATCH TRANSDERM SCH (08:25)
[2019-06-08] MEDS: Propranolol TAB* 10 MG PO SCH (08:25)
[2019-06-08] MEDS: RiFAXimin* 550 MG TAB PO SCH (08:26)
[2019-06-08] MEDS: HYDROmorphone TAB* 4 MG PO PRN (08:28)
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
[2019-06-08] MEDS ORDERED: Escitalopram * 20 MG TABLET PO SCH (09:00)
== END 2019-06-08 11:05 | disposition home or self-care (01) | DRG 754 ==
LOC: BSU 20:20
PROVIDERS: ADMIT Psychiatry & Neurology Psychiatry; ATTEND Psychiatry & Neurology Psychiatry
PROC: GZHZZZZ Group Psychotherapy (ICD-10-PCS; principal; 2019-06-06)
DX: F32.9 Major depressive disorder, single episode, unspecified (principal); T42.6X2A Poisoning by other antiepileptic and sedative-hypnotic drugs, intentional self-harm, initial encounter; J44.9 Chronic obstructive pulmonary disease, unspecified; K74.60 Unspecified cirrhosis of liver; E88.01 Alpha-1-antitrypsin deficiency; E66.3 Overweight; F41.8 Other specified anxiety disorders; E11.9 Type 2 diabetes mellitus without complications; I10 Essential (primary) hypertension; G89.29 Other chronic pain; M54.5 Low back pain; L73.9 Follicular disorder, unspecified; Y92.009 Unspecified place in unspecified non-institutional (private) residence as the place of occurrence of the external cause; Z88.6 Allergy status to analgesic agent; Z72.0 Tobacco use; Z68.26 Body mass index [BMI] 26.0-26.9, adult; Z87.820 Personal history of traumatic brain injury; Z79.4 Long term (current) use of insulin
CPT/HCPCS: 36415; 76705; 80053; 80061; 82140; 83036; 85025; 90853; 99222; 99232; 99233; 99238; A9270-GY

== ENCOUNTER 2020-06-18 14:10 | Inpatient (IN) ==
[2020-06-18 17:22] LABS: Hematocrit 19 % (42-52); Hemoglobin 6.2 g/dL (14.0-18.0)
[2020-06-18] MEDS: NS 0.9% 1000 ml BAG 1,000 ML IV SCH (17:22)
[2020-06-18] MEDS ORDERED: Pantoprazole VIAL 40 MG VIAL IV ONE (17:55)
[2020-06-18 17:57] LABS: AST 527 U/L (13-39); Albumin 2.9 g/dL (3.2-5.2); Albumin/Globulin Ratio 1.9 (1-3); Alkaline Phosphatase 58 U/L (34-104); Anion Gap 17 mmol/L (2-11); BUN/Creatinine Ratio 36.6 (8-20); Blood Urea Nitrogen 49 mg/dL (6-24); CO2 Carbon Dioxide 16 mmol/L (22-32); Calcium 8.3 mg/dL (8.6-10.3); Chloride 101 mmol/L (101-111); EGFR African American 69.4 (>60); EGFR Non-African American 57.4 (>60); Globulin 1.5 g/dL (2-4); Glucose 316 mg/dL (70-100); Potassium 3.6 mmol/L (3.5-5.0); Sodium 134 mmol/L (135-145); Total Protein 4.4 g/dL (6.4-8.9)
[2020-06-18] MEDS ORDERED: Dextrose 50% Syringe 50 ml 25 GM/50 ML SYRINGE IV PUSH PRN (18:00)
[2020-06-18 18:04] LABS: Activated Partial Thrombo Time 24.2 seconds (26.0-38.0); INR 2.42 (0.82-1.09)
[2020-06-18 18:11] LABS: Magnesium 1.8 mg/dL (1.9-2.7)
[2020-06-18 18:30] LABS: ALT 761 U/L (7-52)
[2020-06-18] MEDS: Pantoprazole 80 mg in NS BAG 80 MG/250 ML BAG IV SCH (18:54)
[2020-06-18] MEDS ORDERED: Octreotide Acetate 100 mcg/ml 50 MCG in NS 0.9% 50 ML 50 ML IV ONE (19:34)
[2020-06-18] MEDS ORDERED: Octreotide Acetate 500 MCG in NS 0.9% 100 ml BAG 100 ML IV SCH (20:00)
[2020-06-18 20:08] LABS: Acetaminophen < 15 mcg/mL; Alcohol, S < 10 mg/dL (<10)
[2020-06-18 20:18] LABS: Urine Benzodiazepine Screen None Detected (None Detect); Urine Opiates Screen None Detected (None Detect)
[2020-06-18] MEDS: Polyethylene Glycol 3350 17 GM PACKET PO SCH (22:31)
[2020-06-18] MEDS: cefTRIAXone 1 gm/50 mL NS BAG 1 GM/50 ML BAG IVPB SCH (22:42)
[2020-06-19 02:04] LABS: Hematocrit 20 % (42-52); Hemoglobin 6.8 g/dL (14.0-18.0)
[2020-06-19] MEDS: Pantoprazole 80 mg in NS BAG 80 MG/250 ML BAG IV SCH ×3 (04:57→12:55)
[2020-06-19] MEDS: NS 0.9% 1000 ml BAG 1,000 ML IV SCH ×2 (05:25→14:30)
[2020-06-19 06:46] LABS: Hematocrit 21 % (42-52); Hemoglobin 7.1 g/dL (14.0-18.0); Mean Corpuscular HGB Conc 35 g/dL (31-36); Mean Corpuscular Hemoglobin 31 pg (27-31); Mean Corpuscular Volume 91 fL (80-94); Mean Platelet Volume 9.2 fL (7.4-10.4); Platelet Count 108 10^3/uL (150-450); Red Blood Count 2.28 10^6 /uL (4.18-5.48); Red Cell Distribution Width 15 % (10-15)
[2020-06-19 07:09] LABS: BUN/Creatinine Ratio 45.2 (8-20); Calcium 7.5 mg/dL (8.6-10.3); EGFR Non-African American 76.9 (>60); Potassium 3.9 mmol/L (3.5-5.0)
[2020-06-19 07:46] LABS: Albumin 2.8 g/dL (3.2-5.2); Albumin/Globulin Ratio 1.9 (1-3); Globulin 1.5 g/dL (2-4); Total Bilirubin 1.7 mg/dL (0.2-1.0); Total Protein 4.3 g/dL (6.4-8.9)
[2020-06-19] MEDS: Polyethylene Glycol 3350 17 GM PACKET PO SCH (07:58)
[2020-06-19] MEDS ORDERED: Octreotide Acetate 500 MCG in NS 0.9% 100 ml BAG 100 ML IV SCH (08:00)
[2020-06-19] MEDS: Tiotropium Brom/Olodaterol MDI INH SCH (08:05)
[2020-06-19 08:52] LABS: ABS Eosinophils 0.1 10^3/ul (0-0.6); ABS Monocytes 2.3 10^3/ul (0-0.8); ABS Nucleated RBC 0.6 10^3/ul; Eosinophil % 0.2 %; Lymphocyte % 27.7 %; Nucleated Red Blood Cells % 1.7
[2020-06-19 09:02] LABS: Polychromasia 2+
[2020-06-19] MEDS ORDERED: fentaNYL 100 mcg/2 ml 50 MCG/ML VIAL ONE (12:47)
[2020-06-19] MEDS ORDERED: Midazolam 10 mg/10 ml VIAL 1 mg/ml 10 ml VIAL (10 mg) ONE (12:47)
[2020-06-19 17:41] LABS: Hepatitis C Antibody Negative (Negative)
[2020-06-19] MEDS ORDERED: NS 0.9% 1000 ml BAG 1,000 ML IV SCH (18:57)
[2020-06-19 20:43] LABS: Hepatitis B Surface Antigen Nonreactive (Nonreactive)
[2020-06-19] MEDS: cefTRIAXone 1 gm/50 mL NS BAG 1 GM/50 ML BAG IVPB SCH (21:51)
[2020-06-19] MEDS: Lactulose 30 ml UDC PO SCH (21:51)
[2020-06-20 06:08] LABS: Albumin 2.5 g/dL (3.2-5.2); Calcium 7.3 mg/dL (8.6-10.3); Potassium 3.8 mmol/L (3.5-5.0)
[2020-06-20 06:09] LABS: ABS Basophils 0.1 10^3/ul (0-0.2); ABS Eosinophils 0.1 10^3/ul (0-0.6); ABS Lymphocytes 4.8 10^3/ul (1.0-4.8); ABS Monocytes 2.4 10^3/ul (0-0.8); ABS Nucleated RBC 0.5 10^3/ul; Eosinophil % 0.3 %; Hematocrit 20 % (42-52); Hemoglobin 7.1 g/dL (14.0-18.0); Lymphocyte % 22.9 %; Mean Corpuscular HGB Conc 35 g/dL (31-36); Mean Corpuscular Hemoglobin 32 pg (27-31); Mean Corpuscular Volume 90 fL (80-94); Mean Platelet Volume 8.9 fL (7.4-10.4); Nucleated Red Blood Cells % 2.6; Platelet Count 62 10^3/uL (150-450); Red Blood Count 2.26 10^6 /uL (4.18-5.48); Red Cell Distribution Width 16 % (10-15); White Blood Count 21.2 10^3/uL (3.5-10.8)
[2020-06-20 06:14] LABS: Albumin/Globulin Ratio 1.5 (1-3); EGFR African American 124.1 (>60); EGFR Non-African American 102.6 (>60); Globulin 1.7 g/dL (2-4); Total Protein 4.2 g/dL (6.4-8.9)
[2020-06-20 06:54] LABS: Polychromasia 2+
[2020-06-20] MEDS: Tiotropium Brom/Olodaterol MDI INH SCH (07:33)
[2020-06-20] MEDS: Lactulose 30 ml UDC PO SCH ×5 (08:36→20:50)
[2020-06-20] MEDS: Polyethylene Glycol 3350 17 GM PACKET PO SCH (08:41)
[2020-06-20] MEDS ORDERED: Phytonadione Oral Solution 5 MG/25 ML UDC PO ONE (12:12)
[2020-06-20] MEDS ORDERED: Iron Sucrose 200 MG in NS 0.9% 100 ml BAG 100 ML IVPB ONE (12:12)
[2020-06-20] MEDS: cefTRIAXone 1 gm/50 mL NS BAG 1 GM/50 ML BAG IVPB SCH (20:50)
[2020-06-21 08:15] LABS: Activated Partial Thrombo Time 25.7 seconds (26.0-38.0); INR 1.42 (0.82-1.09)
[2020-06-21 08:18] LABS: Albumin 2.6 g/dL (3.2-5.2); Albumin/Globulin Ratio 1.3 (1-3); BUN/Creatinine Ratio 34.3 (8-20); Calcium 7.3 mg/dL (8.6-10.3); EGFR African American 146.9 (>60); EGFR Non-African American 121.4 (>60); Potassium 3.3 mmol/L (3.5-5.0); Total Bilirubin 1.5 mg/dL (0.2-1.0); Total Protein 4.6 g/dL (6.4-8.9)
[2020-06-21] MEDS: Tiotropium Brom/Olodaterol MDI INH SCH (08:28)
[2020-06-21 08:29] LABS: ABS Eosinophils 0.1 10^3/ul (0-0.6); ABS Lymphocytes 5.6 10^3/ul (1.0-4.8); ABS Monocytes 1.8 10^3/ul (0-0.8); ABS Nucleated RBC 0.9 10^3/ul; Eosinophil % 0.4 %; Hematocrit 23 % (42-52); Hemoglobin 7.8 g/dL (14.0-18.0); Lymphocyte % 28.3 %; Mean Corpuscular HGB Conc 35 g/dL (31-36); Mean Corpuscular Hemoglobin 32 pg (27-31); Mean Corpuscular Volume 92 fL (80-94); Mean Platelet Volume 9.1 fL (7.4-10.4); Nucleated Red Blood Cells % 4.6; Platelet Count 80 10^3/uL (150-450); Red Blood Count 2.44 10^6 /uL (4.18-5.48); Red Cell Distribution Width 16 % (10-15); White Blood Count 19.7 10^3/uL (3.5-10.8)
[2020-06-21] MEDS: Polyethylene Glycol 3350 17 GM PACKET PO SCH (08:49)
[2020-06-21] MEDS: Lactulose 30 ml UDC PO SCH ×4 (08:53→22:04)
[2020-06-21 10:13] LABS: Polychromasia 2+
[2020-06-21] MEDS: Potassium Chlor 10 meq TAB PO SCH ×2 (10:35→20:58)
[2020-06-21 11:41] LABS: Magnesium 2.2 mg/dL (1.9-2.7)
[2020-06-21] MEDS ORDERED: Al Hydrox/Mg Hydrox/Simet LIQ 30 ML UDC PO PRN (18:53)
[2020-06-21] MEDS: cefTRIAXone 1 gm/50 mL NS BAG 1 GM/50 ML BAG IVPB SCH (22:07)
[2020-06-22] MEDS: Tiotropium Brom/Olodaterol MDI INH SCH (07:48)
[2020-06-22] MEDS: Potassium Chlor 10 meq TAB PO SCH (08:29)
[2020-06-22] MEDS: Polyethylene Glycol 3350 17 GM PACKET PO SCH (08:30)
[2020-06-22] MEDS: Lactulose 30 ml UDC PO SCH ×2 (08:30→13:16)
[2020-06-22 13:41] LABS: Albumin 2.7 g/dL (3.2-5.2); Albumin/Globulin Ratio 1.4 (1-3); Alkaline Phosphatase 291 U/L (34-104); BUN/Creatinine Ratio 26.6 (8-20); Blood Urea Nitrogen 17 mg/dL (6-24); CO2 Carbon Dioxide 21 mmol/L (22-32); Calcium 7.3 mg/dL (8.6-10.3); Chloride 107 mmol/L (101-111); EGFR African American 162.9 (>60); EGFR Non-African American 134.6 (>60); Globulin 1.9 g/dL (2-4); Glucose 150 mg/dL (70-100); Magnesium 2.1 mg/dL (1.9-2.7); Sodium 133 mmol/L (135-145); Total Protein 4.6 g/dL (6.4-8.9)
[2020-06-22 13:48] LABS: Anion Gap 5 mmol/L (2-11)
[2020-06-22 15:25] VITALS: BP 108/61
[2020-06-22 16:11] LABS: ALT 974 U/L (7-52)
[2020-06-22 16:27] LABS: Hematocrit 27 % (42-52); Hemoglobin 9.1 g/dL (14.0-18.0); Mean Corpuscular HGB Conc 34 g/dL (31-36); Mean Corpuscular Hemoglobin 32 pg (27-31); Mean Corpuscular Volume 93 fL (80-94); Red Blood Count 2.84 10^6 /uL (4.18-5.48); Red Cell Distribution Width 17 % (10-15); White Blood Count 10.5 10^3/uL (3.5-10.8)
[2020-06-22 16:35] LABS: INR 1.24 (0.82-1.09)
[2020-06-22 17:02] LABS: ABS Basophils 0.1 10^3/ul (0-0.2); ABS Eosinophils 0.1 10^3/ul (0-0.6); ABS Lymphocytes 2.6 10^3/ul (1.0-4.8); ABS Nucleated RBC 0.1 10^3/ul; Eosinophil % 1.2 %; Mean Platelet Volume 9.1 fL (7.4-10.4); Nucleated Red Blood Cells % 0.7
[2020-06-22 17:04] LABS: Potassium Redraw 3.5 mmol/L (3.5-5.0)
[2020-06-22 17:56] LABS: Platelet Count 79 10^3/uL (150-450)
== END 2020-06-22 18:07 | disposition home or self-care (01) | DRG 254 ==
LOC: MEDTELE 16:17
PROVIDERS: ADMIT Internal Medicine; ATTEND Internal Medicine

== ENCOUNTER 2021-08-26 21:19 | Observation (INO) ==
[2021-08-26 23:10] LABS: Venous Bicarbonate HCO3 22.6 mmol/L (24-28)
[2021-08-26 23:11] LABS: ABS Basophils 0.1 10^3/ul (0-0.2); ABS Eosinophils 0.1 10^3/ul (0-0.6); ABS Lymphocytes 1.9 10^3/ul (1.0-4.8); ABS Monocytes 0.6 10^3/ul (0-0.8); ABS Neutrophils 3.3 10^3/ul (1.5-7.7); Eosinophil % 1.4 %; Hematocrit 24 % (42-52); Hemoglobin 8.1 g/dL (14.0-18.0); Lymphocyte % 31.3 %; Mean Corpuscular HGB Conc 33 g/dL (31-36); Mean Corpuscular Hemoglobin 32 pg (27-31); Mean Corpuscular Volume 95 fL (80-94); Mean Platelet Volume 8.5 fL (7.4-10.4); Platelet Count 126 10^3/uL (150-450); Red Blood Count 2.54 10^6 /uL (4.18-5.48); Red Cell Distribution Width 17 % (10-15); White Blood Count 5.9 10^3/uL (3.5-10.8)
[2021-08-26 23:28] LABS: Albumin 3.1 g/dL (3.2-5.2); Calcium 8.1 mg/dL (8.6-10.3); Direct Bilirubin 0.5 mg/dL (0.03-0.18); EGFR African American 181.7 (>60); EGFR Non-African American 150.2 (>60); Globulin 3.1 g/dL (2-4); Indirect Bilirubin 1.1 mg/dL (0.3-1.0); Magnesium 1.9 mg/dL (1.9-2.7); Potassium 3.9 mmol/L (3.5-5.0); Total Bilirubin 1.6 mg/dL (0.2-1.0); Total Protein 6.2 g/dL (6.4-8.9)
[2021-08-26 23:29] LABS: Troponin I 0.01 ng/mL (<0.03)
[2021-08-26 23:33] LABS: Rapid COVID-19 Molecular Undetected (Undetected)
[2021-08-26 23:34] LABS: Activated Partial Thrombo Time 28.8 seconds (26.0-38.0); INR 1.36 (0.86-1.15)
[2021-08-26] MEDS ORDERED: Magnesium Sulfate 2 gm BAG 2 GM/50 ML BAG IVPB ONE (23:47)
[2021-08-27 03:50] LABS: Body Fluid Source Peritonial Fluid
[2021-08-27 04:11] LABS: Body Fluid WBC 154 /mcL
[2021-08-27 04:49] LABS: Body Fluid Appearance Clear; Body Fluid Color Yellow; Body Fluid Mono 23 %; Body Fluid Other Cells 22; Body Fluid Total Cells Counted 200
[2021-08-27] MEDS: Albumin Human 25% 25 GM/100 ML BTL IV SCH (06:50)
[2021-08-27] MEDS ORDERED: Polyethylene Glycol 3350 17 GM PACKET PO PRN (07:08)
[2021-08-27] MEDS ORDERED: Senna TAB 8.6 mg TAB PO PRN (07:08)
[2021-08-27] MEDS ORDERED: Dextrose 50% Syringe 50 ml 25 GM/50 ML SYRINGE IV PUSH PRN (07:09)
[2021-08-27] MEDS ORDERED: Morphine 2 MG/ML SYRINGE IV ONE (10:24)
[2021-08-27 13:35] LABS: ABS Basophils 0.1 10^3/ul (0-0.2); ABS Eosinophils 0.1 10^3/ul (0-0.6); ABS Lymphocytes 1.3 10^3/ul (1.0-4.8); ABS Monocytes 0.5 10^3/ul (0-0.8); ABS Neutrophils 2.9 10^3/ul (1.5-7.7); Hematocrit 21 % (42-52); Hemoglobin 6.9 g/dL (14.0-18.0); Lymphocyte % 26.2 %; Mean Corpuscular HGB Conc 33 g/dL (31-36); Mean Corpuscular Hemoglobin 32 pg (27-31); Mean Corpuscular Volume 95 fL (80-94); Mean Platelet Volume 8.2 fL (7.4-10.4); Platelet Count 114 10^3/uL (150-450); Red Blood Count 2.18 10^6 /uL (4.18-5.48); Red Cell Distribution Width 17 % (10-15); White Blood Count 4.9 10^3/uL (3.5-10.8)
[2021-08-27 13:45] LABS: INR 1.41 (0.86-1.15)
[2021-08-27 13:51] LABS: Albumin 2.6 g/dL (3.2-5.2); Calcium 7.8 mg/dL (8.6-10.3); Direct Bilirubin 0.4 mg/dL (0.03-0.18); EGFR African American 193.2 (>60); EGFR Non-African American 159.7 (>60); Globulin 2.6 g/dL (2-4); Indirect Bilirubin 0.7 mg/dL (0.3-1.0); Potassium 4.2 mmol/L (3.5-5.0); Total Bilirubin 1.1 mg/dL (0.2-1.0); Total Protein 5.2 g/dL (6.4-8.9)
[2021-08-28 02:30] LABS: Hematocrit 26 % (42-52); Hemoglobin 8.4 g/dL (14.0-18.0)
[2021-08-28 07:27] LABS: ABS Basophils 0.1 10^3/ul (0-0.2); ABS Eosinophils 0.1 10^3/ul (0-0.6); ABS Lymphocytes 2.2 10^3/ul (1.0-4.8); ABS Monocytes 0.6 10^3/ul (0-0.8); ABS Neutrophils 2.9 10^3/ul (1.5-7.7); Eosinophil % 2.4 %; Hematocrit 26 % (42-52); Hemoglobin 8.4 g/dL (14.0-18.0); Lymphocyte % 37.2 %; Mean Corpuscular HGB Conc 33 g/dL (31-36); Mean Corpuscular Hemoglobin 30 pg (27-31); Mean Corpuscular Volume 92 fL (80-94); Mean Platelet Volume 8.7 fL (7.4-10.4); Nucleated Red Blood Cells % 0.1; Platelet Count 115 10^3/uL (150-450); Red Blood Count 2.77 10^6 /uL (4.18-5.48); Red Cell Distribution Width 19 % (10-15); White Blood Count 5.8 10^3/uL (3.5-10.8)
[2021-08-28 07:44] LABS: C Reactive Protein 18.23 mg/L (<8.01); Calcium 7.6 mg/dL (8.6-10.3); EGFR African American 201.6 (>60); EGFR Non-African American 166.6 (>60); Potassium 3.9 mmol/L (3.5-5.0)
[2021-08-28] MEDS ORDERED: Iron Sucrose 200 MG in NS 0.9% 100 ml BAG 100 ML IVPB ONE (09:00)
[2021-08-28 12:16] VITALS: BP 102/49
[2021-08-28 13:04] LABS: Fluid Type, Amylase PERITONEAL
[2021-08-28 13:14] LABS: Fluid Type, Protein, Total PERITONEAL; Total Protein, BF 0.2 g/dL
[2021-08-28 13:23] LABS: Albumin, BF 0.3 g/dL; Fluid Type, Albumin PERITONEAL
== END 2021-08-28 15:20 | disposition home or self-care (01) ==
LOC: ED 21:19 → EDHOLD 08-27 04:44 → SUATTDRO 08-27 04:44 → INTOOBSV 08-27 04:44 → MEDTELE 08-27 10:15
PROVIDERS: ADMIT Internal Medicine; ATTEND Internal Medicine

== ENCOUNTER 2021-09-03 00:03 | Observation (INO) ==
[2021-09-03 01:31] LABS: Albumin 2.8 g/dL (3.2-5.2); C Reactive Protein 17.13 mg/L (<8.01); Globulin 2.9 g/dL (2-4); Potassium 3.5 mmol/L (3.5-5.0); Total Bilirubin 1.1 mg/dL (0.2-1.0); Total Protein 5.7 g/dL (6.4-8.9)
[2021-09-03 01:35] LABS: ABS Lymphocytes 1.2 10^3/ul (1.0-4.8); ABS Monocytes 0.5 10^3/ul (0-0.8); ABS Neutrophils 1.7 10^3/ul (1.5-7.7); Eosinophil % 0.8 %; Hematocrit 26 % (42-52); Hemoglobin 8.6 g/dL (14.0-18.0); Mean Corpuscular HGB Conc 33 g/dL (31-36); Mean Corpuscular Hemoglobin 30 pg (27-31); Mean Corpuscular Volume 92 fL (80-94); Mean Platelet Volume 8.8 fL (7.4-10.4); Nucleated Red Blood Cells % 0.2; Platelet Count 98 10^3/uL (150-450); Red Blood Count 2.86 10^6 /uL (4.18-5.48); Red Cell Distribution Width 20 % (10-15); White Blood Count 3.4 10^3/uL (3.5-10.8)
[2021-09-03 02:06] LABS: Activated Partial Thrombo Time 29.8 seconds (26.0-38.0); INR 1.37 (0.86-1.15)
[2021-09-03] MEDS ORDERED: Dextrose 50% Syringe 50 ml 25 GM/50 ML SYRINGE IV PUSH PRN (02:17)
[2021-09-03] MEDS ORDERED: Furosemide 40 mg/4 ml IV VIAL IV ONE (02:29)
[2021-09-03 03:00] LABS: Rapid COVID-19 Molecular Detected (Undetected)
[2021-09-03] MEDS ORDERED: Enoxaparin 40 MG/0.4 ML SYR SUBCUT SCH (03:00)
[2021-09-03 04:02] LABS: Urine Appearance Clear; Urine Bilirubin Negative (Negative); Urine Blood Negative (Negative); Urine Color Straw; Urine Glucose 3+(>=500 mg/dL) (Negative); Urine Ketones Negative (Negative); Urine Nitrite Negative (Negative); Urine Protein Negative (Negative); Urine Specific Gravity 1.007 (1.002-1.030); Urine Urobilinogen Negative (Negative)
[2021-09-03] MEDS ORDERED: Flu vaccine *QUAD* 2021-22* 0.5 ML SYRINGE IM ONE (17:00)
[2021-09-03] MEDS ORDERED: NS 0.9% 50 ML 50 ML IV ONE (17:00)
[2021-09-03] MEDS ORDERED: CASIRIVI/IMDEVI-MAB 600-600 MG 10 ML in NS 0.9% 100 ml BAG 100 ML IV ONE (17:00)
[2021-09-03 18:57] VITALS: BP 94/46
== END 2021-09-03 19:30 | disposition home or self-care (01) ==
LOC: ED 00:03 → INTOOBSV 02:11 → EDHOLD 02:11 → SUATTDRO 02:11 → MED 13:00
PROVIDERS: ADMIT Internal Medicine; ATTEND Student in an Organized Health Care Education/Training Program